=== PATIENT | male | born 1975 ===

== ENCOUNTER 2024-11-08 05:11 | Inpatient (IN) | payer OTHER ==
[2024-11-02 12:56] VITALS: BP 129/84
[~2024-11-08] VITALS: Ht 172.7 cm; Wt 102.1 kg
[2024-11-08] MEDS ORDERED: DEXAMETHASONE SODIUM PHOSPHATE 4 MG/ML VIAL ONE (07:11)
[2024-11-08] MEDS ORDERED: ONDANSETRON HCL 2 MG/ML VIAL IV PRN (10:15)
[2024-11-08] MEDS ORDERED: ENALAPRILAT DIHYDRATE 1.25 MG/ML VIAL IV PRN (10:15)
[2024-11-08 17:00] VITALS: BP 133/85; O2SAT 96
[2024-11-08] MEDS ORDERED: CALCITRIOL 0.5 MCG CAPSULE PO SCH (17:00)
[2024-11-08] MEDS ORDERED: Calcium Carbonate 1 TAB TABLET PO SCH ×2 (17:00→21:00)
[2024-11-08] MEDS ORDERED: TRAMADOL HCL 50 MG TABLET PO SCH (17:00)
[2024-11-08] MEDS ORDERED: ACETAMINOPHEN 500 MG GEL..CAP PO SCH (17:00)
[2024-11-08] MEDS ORDERED: DIPHENHYDRAMINE HCL 75 MG,LIDOCAINE HCL 30 ML,MAG HYDROX/ALUMINUM HYD/SIMETH 30 ML PO SCH (17:00)
[2024-11-08] MEDS ORDERED: PANTOPRAZOLE SODIUM 40 MG/VIAL VIAL IV PUSH SCH (21:00)
[2024-11-08] MEDS ORDERED: MAG HYDROX/ALUMINUM HYD/SIMETH 30 ML BLIST.PACK PO ONE (22:33)
[2024-11-08] MEDS ORDERED: DIPHENHYDRAMINE HCL 12.5 MG/5 ML BLIST.PACK PO ONE (22:33)
[2024-11-09] VITALS: BP 115/70; O2SAT 96
[2024-11-09] MEDS ORDERED: LEVOTHYROXINE SODIUM 150 MCG TABLET PO SCH (07:00)
[2024-11-09 08:00] VITALS: BP 109/73; O2SAT 97
== END 2024-11-09 11:35 | disposition home or self-care (01) | DRG 627 ==
LOC: CIR.AMB 05:11 → EDSTATUS 10:45 → SURH 10:45 → O/R 16:18 → SURH 16:19
PROVIDERS: ADMIT Surgery; ATTEND Surgery
PROC: 0GTG0ZZ Resection of Left Thyroid Gland Lobe, Open Approach (ICD-10-PCS; principal; 2024-11-08 14:00)
DX: C73 Malignant neoplasm of thyroid gland (principal)